=== PATIENT | female | born 1995 | race Caucasian/White ===

== ENCOUNTER → 2018-11-01 | Outpatient (CLI) | payer BC ==
--- NOTE | 2018-11-01 17:58 | Diagnostic Imaging Report ---
INDICATION: Lump in the right breast. EXAMINATION: Interrogation of the outer right breast at the area of lump was performed. FINDINGS: There are two circumscribed, macrolobulated solid masses at the 9 o'clock location of the right breast. One mass measures 1.4 x 1.1 x 1.6 cm. Second mass measures 2.1 x 1.4 x 1.4 cm. These have the appearance of fibroadenomas. These appear to be wider than they are tall. No significant internal vascularity is seen. There is no shadowing. IMPRESSION: There are two solid circumscribed macrolobulated masses at the 9 o'clock location of the right breast, the smaller one accounts for the area of palpable abnormality. These have the appearance of benign fibroadenomas. Even so, followup right right breast ultrasound in six months is recommended to confirm stability. Dictated on workstation # [id number]
== END ==
LOC: RAD 14:04
PROVIDERS: ATTEND Obstetrics & Gynecology
DX: C50.411 Malignant neoplasm of upper-outer quadrant of right female breast (principal); N63.10 Unspecified lump in the right breast, unspecified quadrant